=== PATIENT | male | born 1950 | race Caucasian/White ===

== ENCOUNTER 2017-10-19 07:33 | Emergency (ER) | payer MEDICARE, OTHER ==
[~2017-10-19] VITALS: Ht 180.3 cm; Wt 72.6 kg
[2017-10-19 07:39] VITALS: BP 130/84
[2017-10-19] MEDS ORDERED: QVAR8.7 G1 INH (07:46)
[2017-10-19] MEDS ORDERED: PREDNISONE 10 M10 MG PO (07:46)
[2017-10-19] MEDS ORDERED: MUCINEX1200 MG PO (07:47)
[2017-10-19] MEDS ORDERED: DOXYCYCLINE 10100 MG PO (07:47)
[2017-10-19] MEDS ORDERED: FLUOROURACIL30 GM TOP (07:48)
== END 2017-10-19 08:09 | disposition home or self-care (01) ==
LOC: M.ERS 07:33
DX: R21 Rash and other nonspecific skin eruption (principal); T36.4X5A Adverse effect of tetracyclines, initial encounter; J44.9 Chronic obstructive pulmonary disease, unspecified; Z85.828 Personal history of other malignant neoplasm of skin; Z88.1 Allergy status to other antibiotic agents; Z88.0 Allergy status to penicillin; Y92.89 Other specified places as the place of occurrence of the external cause

== ENCOUNTER 2020-03-07 08:36 | Emergency (ER) | payer OTHER ==
[~2020-03-07] VITALS: Ht 182.9 cm; Wt 70.3 kg
[~2020-03-07 08:36] MED LIST: DOXYCYCLINE 10100 MG PO; FLUOROURACIL30 GM TOP; MUCINEX1200 MG PO; PREDNISONE 10 M10 MG PO; QVAR8.7 G1 INH
[2020-03-07] MEDS ORDERED: IBUPROFEN 800800 M1 PO (09:45)
[2020-03-07] MEDS ORDERED: FLEXERIL PO (09:45)
[2020-03-07 09:58] VITALS: BP 113/71
== END 2020-03-07 10:00 | disposition home or self-care (01) ==
LOC: M.ERS 08:36
DX: M54.12 Radiculopathy, cervical region (principal); J44.9 Chronic obstructive pulmonary disease, unspecified; Z88.0 Allergy status to penicillin; Z88.1 Allergy status to other antibiotic agents; Z86.14 Personal history of Methicillin resistant Staphylococcus aureus infection; Z85.828 Personal history of other malignant neoplasm of skin